=== PATIENT | male | born 1960 | race Caucasian/White ===

== ENCOUNTER 2016-08-27 20:49 | Emergency (ER) ==
[2016-08-27] MEDS ORDERED: ASPIRIN PO STA (21:31)
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
[2016-08-27 22:14] LABS: BASO% 0.1 % (0.0-0.8); HEMATOCRIT 38.3 % (42.0-52.0); HEMOGLOBIN 13.4 g/dL (14.0-18.0); IMM GRAN# 0.05 X1000 (0.0-0.04); IMM GRAN% 0.3 % (0.0-0.5); LYMPH# 0.48 X1000 (1.2-3.4); LYMPH% 3.2 % (20.5-51.1); MANUAL DIFF NEEDED? NO; MCH 31.6 PG (27-31); MCV 90.3 FL (81-99); MONO# 1.08 X1000 (0.11-0.59); MONO% 7.1 % (1.7-9.3); MPV 10.6 FL (7.4-10.4); NEUT% 89.3 % (42.2-75.2); PLT 178 X1000 (130-400); RBC 4.24 XMIL (4.7-6.1)
[2016-08-27 22:15] LABS: INR 1.13; PTT 31.5 Seconds (22.0-36.0)
[2016-08-27 22:27] LABS: AGAP 13; ALBUMIN 3.8 g/dL (3.5-5.0); ALKALINE PHOSPHATASE 97 U/L (32-122); BUN 16 mg/dL (8-22); CALCIUM 8.5 mg/dL (8.8-10.2); CHLORIDE 92 mmol/L (98-107); COSMO 264; GOT 26 U/L (10-34); GPT 34 U/L (10-44); LIPASE 15 U/L (13-60); MAGNESIUM 1.7 mg/dL (1.5-2.7); POTASSIUM 4.8 mmol/L (3.5-5.1); SODIUM 129 mmol/L (136-145); TCO2 24 mmol/L (25-35); TOTAL BILIRUBIN 0.86 mg/dL (0.20-1.00); TOTAL PROTEIN 7.3 g/dL (6.3-8.3)
[2016-08-27 22:31] LABS: CK PROFILE 263 U/L (24-204)
[2016-08-27] MEDS ORDERED: DILAUDID IV ONE (22:47)
[2016-08-27] MEDS ORDERED: ZOFRAN IV ONE (22:47)
[2016-08-27 23:01] LABS: CK INDEX 0.6 (0.0-2.5); CK-MB 1.46 ng/mL (0.0-5.0)
[2016-08-27 23:48] LABS: URINE CULTURE NEEDED? NO; URINE MICRO REVIEW NEEDED? NO; URINE SOURCE CLEAN CATCH
[2016-08-28] LABS: BILIRUBIN URINE NEGATIVE (NEGATIVE); BLOOD URINE SMALL (NEGATIVE); COLOR YELLOW; GLUCOSE URINE NEGATIVE (NEGATIVE); LEUKOCYTES URINE NEGATIVE (NEGATIVE); NITRITE URINE NEGATIVE (NEGATIVE); PROTEIN URINE 100 mg/dL (NEGATIVE); TURBIDITY URINE CLEAR (CLEAR); UR EPITHELIAL CELLS <10 /HPF (<10); URINE BACTERIA NEGATIVE /HPF; URINE WBC <10 /HPF (<10); UROBILINOGEN URINE NORMAL (NORMAL)
[2016-08-28 00:27] LABS: SP GRAVITY URINE 1.015
[2016-08-28 01:18] VITALS: BP 134/90
--- NOTE | 2016-08-28 08:24 | Diag Imaging Result Document ---
PROCEDURE NAME: CHEST-2 VIEWS - 08/27/2016 AP AND LATERAL CHEST: FINDINGS: There are alveolar opacities in the right apex and right costophrenic sulcus region, which appear worse than on 06/29/2016. The lungs are not well expanded, however. IMPRESSION: Questionable pneumonia, right upper and lower lobes.
--- NOTE | 2016-08-28 09:01 | Diag Imaging Result Document ---
PROCEDURE NAME: ANGIOGRAM/PULMONARY ARTERIES - 08/27/2016 CT ANGIOGRAM OF THE PULMONARY ARTERIES WITH CONTRAST: TECHNIQUE: A dose reduction protocol was used. Axial and reformatted coronal images are obtained. COMPARISON: No comparison exam. FINDINGS: There are no filling defects identified in the pulmonary arteries. There is no indication of aortic dissection. There are partially healed fractures of the anterior right 3rd, 4th, 5th and 6th ribs. There is some dependent atelectasis on the right. There is some atelectasis or scarring at the anterior right upper lobe. There is no dense consolidation, pleural effusion, or pneumothorax identified. There are 3 or 4 noncalcified nodular opacities on the right, most of which measure slightly greater than or equal to 1 cm. There are mildly prominent right hilar lymph nodes. There are no substantially enlarged mediastinal lymph nodes identified. IMPRESSION: 1. No evidence of pulmonary embolism. 2. Partially healed fractures of anterior right 4th, 5th, 6th and 7th ribs. 3. Apparent atelectasis or scarring at the anterosuperior right upper lobe. Some dependent atelectasis on the right. No substantial pleural effusion. No pneumothorax. 4. Three or four noncalcified pulmonary nodular opacities on the right. A few mildly prominent right hilar lymph nodes. These may be inflammatory, but malignancy cannot be excluded. Further evaluation such as by PET-CT is recommended. [facility]
--- NOTE | 2016-08-28 10:52 | EKG Report ---
Test Performed on : 08/27/2016 9:06:38 PM Test Reason : C/p Blood Pressure : / mmHG Vent. Rate : 111 BPM Atrial Rate : 111 BPM P-R Int : 146 ms QRS Dur : 074 ms QT Int : 294 ms P-R-T Axes : 018 000 043 degrees QTc Int : 399 ms Sinus tachycardia. Otherwise normal ECG No previous ECGs available Unconfirmed Result
== END 2016-08-28 01:25 | disposition home or self-care (01) ==
LOC: EDBD → ED 20:49
DX: R07.89 Other chest pain (principal); I10 Essential (primary) hypertension; Z79.899 Other long term (current) drug therapy; W22.8XXA Striking against or struck by other objects, initial encounter
CPT/HCPCS: 71020; 71275; 80053; 81001; 82550; 82553; 83690; 83735; 83880; 84484; 85025; 85379; 85610; 85730; 93005; J1170; J2405; Q9967